=== PATIENT | male | born 1970 | race Caucasian/White ===

== ENCOUNTER → 2016-10-02 | Outpatient (CLI) | payer BC ==
[~2016-10-02] MED LIST: LEVE750T PO; OPTIRAY 320 IV PRN; PRLSR20 PO
--- NOTE | 2016-10-02 09:29 | DIAGNOSTIC IMAGING REPORT ---
CT OF THE CHEST WITH IV CONTRAST CLINICAL HISTORY: D86.9 [id number] HiijuhO62.1 Pulmonary stgegsK29.8 Abnor COMPARISON STUDY: Outside chest CT dated 04/03/2016 TECHNIQUE: Following the IV administration of 94 mL of Optiray-320, CT of the thorax was performed from the thoracic inlet to the lung bases. Images are reviewed in the axial, sagittal, and coronal planes. IV contrast was administered without complication. CT DOSE: 716.68 mGy.cm FINDINGS: Thyroid: Imaged portions of the thyroid gland are normal in appearance. Thoracic aorta: The thoracic aorta is normal in course and caliber, noting standard 3-vessel arch anatomy. No aneurysm or dissection is seen. Pulmonary vasculature: The pulmonary trunk is normal in caliber. There are no central filling defects identified to suggest pulmonary embolus. Note that this examination was not protocoled for the evaluation of pulmonary emboli. HEART: The heart is normal in size and configuration, without pericardial effusion. Lungs and pleural spaces: There are bilateral upper lobe conglomerate masses measuring 47 mm in the right and 44 mm and the left. There is a persistent area of right upper lobe atelectasis. There are innumerable bilateral pulmonary nodules. There are multiple areas of nodular wall thickening. There is a 19 mm spiculated left lower lobe pulmonary nodule unchanged in size from the preceding study. There are no significant pleural effusions. Mediastinum: There is persistent mediastinal lymphadenopathy. There is a 24 mm right para esophageal lymph node. There are enlarged pretracheal lymph nodes measuring up to 16 mm in diameter. There is a mildly enlarged subcarinal lymph node containing calcifications. Melisa: There is mild bilateral hilar adenopathy which contains areas of calcification. Axilla: Clear. Upper abdomen: There is cholelithiasis. There are enlarged retroperitoneal lymph nodes at the level of the superior mesenteric artery measuring up to 19 mm. There is a stable upper pole right renal cortical scar with a subjacent 12 mm hypodensity. Skeletal structures: There are no lytic or blastic osseous lesions. IMPRESSION: 1. Stable mediastinal, hilar, and upper abdominal lymphadenopathy 2. Stable Innumerable bilateral pulmonary nodules with stable nodular studding of the pleura. 3. Stable 19 mm spiculated left lower lobe pulmonary nodule 4. Stable conglomerate masses within the upper lobes 5. Stable right upper lobe area of atelectasis 6. While nonspecific, the above-mentioned findings are consistent with the clinical history of sarcoidosis. A coexistent neoplastic processes would be impossible to exclude Electronically signed by: Hayden Wilson M.D. 10/02/2016 9:28 AM Dictated Date/Time: 10/02/2016 9:02 AM
== END | disposition home or self-care (01) ==
LOC: C.CTS 08:30
PROVIDERS: ATTEND Physician Assistant
DX: D86.9 Sarcoidosis, unspecified (principal); J45.909 Unspecified asthma, uncomplicated; R91.1 Solitary pulmonary nodule; R91.8 Other nonspecific abnormal finding of lung field

== ENCOUNTER → 2016-10-08 | Day surgery (SDC) | payer BC ==
--- NOTE | 2016-10-05 18:46 | HISTORY & PHYSICAL EXAMINATION ---
DATE OF ADMISSION: 10/08/2016 REASON FOR HISTORY AND PHYSICAL: Bronchoscopy. REASON FOR BRONCHOSCOPY: Changing CAT scan images in a patient with sarcoidosis. HISTORY OF PRESENT ILLNESS: The patient is a 46-year-old male who we have followed in clinic for several years. The patient was diagnosed with pulmonary sarcoidosis in 2008 via biopsy. He was initially placed on prednisone. Shortly after starting prednisone he did develop some loss of vision in both eyes. At that time, he had a brain MRI that did show probable sarcoid lesions. 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 He did undergo drainage which found nocardia, however, did not clear completely so he ended up eventually having the entire abscess, which was in the right occipital lobe removed. Following this, he was treated with Bactrim for 8-9 months, but unfortunately he started to have a significant reaction, which include pancytopenia and arthralgias. He subsequently unfortunately had a generalized seizure in June 2009 and was started treatment with Keppra. Fortunately, the Keppra was helpful and he has not had any seizure activity since November 2009 when he had missed a dose of his Keppra. He had been followed by neurology in [place] and then transferred locally and was followed by neurology through [facility] at which point he was recommended to continue his current treatments with Keppra. We continued to follow the patient at the pulmonary clinic and in February I had seen the patient for a general followup at which time he was doing relatively well. His breathing had not really changed at all. Because he had not had imaging done since 2013 we did do a chest x-ray. Chest x-ray was done February 2016 and when compared to the 2013 chest x-ray did show interval increase in the prominence of the right perihilar opacity as well as increased coarse lung markings, which were noted on the 2014 x-ray. The patient then subsequently had a CAT scan of his chest at [facility] in March 2016, which showed bilateral perihilar mass-like opacity, scattered interstitial nodular opacities in a perihilar distribution, pleural nodular thickening involving both lungs also demonstrated as well as biapical pleural thickening. This was compared to chest x-rays from February 2016, December 2013, April 2012, and July 2011. There was no CAT scan for comparison. The patient was followed up in August at which time he had noticed that he had been a little more short of breath since the February visit, he had some and congestion without any significant mucus production. He was treated with Levaquin in April and in July, had not been on any prednisone due to the previous brain abscess. He states that while he was on the Levaquin his breathing improved but as soon as he finished the breathing would worsen again. He states he does get winded with exertion and he is more fatigued, but he attributed this to him stopping caffeine. He denied any fevers or chills, denied any weight changes, denied any other noticeable changes. No headache or lightheadedness. No dizziness. No vision changes. No cardiac symptoms. No chest pain, no palpitations, no chest pressure or heaviness. No GI symptoms. No nausea or vomiting, no indigestion or heartburn. His bowels have been regular. He is voiding well. No swelling in his extremities. No skin changes that he is aware of. Because of the change in CAT scan from March repeat CAT scan was done. This was done at [facility] in early September 2016 showed stable mediastinal hilar and upper abdominal lymphadenopathy, stable and innumerable bilateral pulmonary nodules, 19 mm left lower lobe pulmonary nodule with radiologist interpretation that the above-mentioned findings are consistent with clinical history of sarcoid; however coexistent neoplastic process would be impossible to exclude. We had tried to get a PET scan, unfortunately, insurance company would not approve this so we did do the CAT scan. Because of the changes in the imaging, patient is set up for bronchoscopic evaluation which will be done by Dr. Murguia. The patient's last pulmonary function testing was December 2013, which showed a forced vital capacity of 3.73 liters, which is 80% of predicted; an FEV1 of 1.84 liters, which is 48% of predicted; FEV1/FVC ratio of 49%, FEF 25-75 of 0.6 liters/sec which is 15% of predicted, residual volume of 0.87 liters which is 43% predicted, volume adjusted DLCO of 129% with an interpretation of severe obstructive lung defect with a significant response to bronchodilator. PAST MEDICAL HISTORY: Includes asthma, acute bronchitis, history of brain abscess with nocardia infection, esophageal reflux disease, generalized seizure disorder, pulmonary nodule and sarcoidosis. PAST SURGICAL HISTORY: Includes craniotomy, muscle biopsy. FAMILY HISTORY: Includes coronary artery disease. SOCIAL HISTORY: The patient is a former smoker. He smoked for about 10 years and averaged a pack a day, he quit in 1997. 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 CURRENT MEDICATIONS: Include Keppra 1000 mg 1 tablet twice daily, Combivent Respimat 1 puff every 4 hours as needed, DuoNeb via nebulizer every 4 hours as needed, Prilosec OTC 20 mg one tablet daily, levofloxacin 750 mg daily. ALLERGIES: BACTRIM/SULFA. REVIEW OF SYSTEMS: As above, otherwise unremarkable. PHYSICAL EXAMINATION: GENERAL: The patient is a 46-year-old male in no acute distress. He is alert and oriented x3. Mood is good. Affect is good. VITAL SIGNS: Temp 97.9, pulse 71, respirations 20, blood pressure is 110/68, pulse ox 95% on room air, weight is 224 pounds and has been stable dating back to May 2012. HEENT: Normocephalic, atraumatic. Pupils equal, round and reactive to light and accommodation. Extraocular movements are intact. [place] moist gingival and buccal mucosa. NECK: Supple. No mass. No adenopathy. No bruit. CHEST: Diminished but clear. No wheeze, rale or rhonchi appreciated. CARDIOVASCULAR: Regular rate and rhythm. No murmurs, gallops or rubs. ABDOMEN: Soft, nontender. No guarding, rigidity or organomegaly. Bowel sounds are present. EXTREMITIES: No erythema, no edema, no cyanosis or clubbing. NEUROLOGIC: Cranial nerves II through XII are intact. No focal deficit noted. 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 He has noticed a little bit of a change in his breathing, but it sounds more that its infectious in nature and he responded well to Levaquin; however, with the changes on imaging and some changes in his breathing, I think it would be good to get a bronchoscopic evaluation. Procedure was explained to the patient including risks, benefits and alternatives. He is agreeable to having a procedure done. He is to continue his medications as they are. He is to have appropriate blood work done. He is to contact the office if there is any question or problem. He will be followed up after the procedure. Patient reviewed and plan agreed with. ROC
[2016-10-08] VITALS (16 sets, daily range): BP systolic 106–122; BP diastolic 59–92; PULSE 62–79; TEMP 36.6–36.9; O2SAT 94–99; Ht 175.3 cm; Wt 97.6 kg
[~2016-10-08] VITALS: Ht 175.3 cm; Wt 97.6 kg
[~2016-10-08] MED LIST changes: +FENTANYL CITRATE INJ 50 MCG/1 ML 2 ML VIAL IV ONE; +IPRATROPIUM BROMIDE NEB SOLN 0.02% 2.5 ML VIAL INH ONE; +LEVALBUTEROL 1.25MG/3ML NEB INH ONE; +LIDOCAINE 4% W/AFRIN NASAL SOLN 4ML ONE; +MIDAZOLAM HCL 5 MG/ML 1 ML VIAL IV ONE; +NURSING VERBAL MED ORDER ONE; -OPTIRAY 320 IV PRN
--- NOTE | 2016-10-08 09:19 | History & Physical Bridge Note ---
H&P Re-Evaluation Bridge Note: I have examined the patient, reviewed the History & Physical and in the interval since the performance of the History & Physical I have noted the following changes of clinical significance: No changes noted
--- NOTE | 2016-10-08 09:20 | Procedure Note ---
Pre-Mod Sedation Assessment General Date of Moderate Sedation: Oct 08, 2016. Vital Signs: Vital Signs Past 12 Hours Date Time Temp Pulse Resp B/P (MAP) Pulse Ox O2 Delivery O2 Flow Rate FiO2 10/08/16 08:52 36.6 62 18 111/61 (78) 96 Room Air Pre-Sedation Airway Assessment Oral Cavity: WNL Hx of Sleep Apnea: No Smoking Status: Former Smoker Mallampati Classification: Class II ASA Classification: Class II Procedure Planning Contraindications-for Mod Sed: None Yes Notes The planned sedation has been discussed with the patient and consent obtained. I have identified the patient, determined the appropriateness of sedation and have assessed the patient immediately prior to the procedure. All medicine(s) and interventions are by my order.
--- NOTE | 2016-10-08 11:52 | OPERATIVE REPORT ---
DATE OF OPERATION: 10/08/2016 TIME: 10:30. PROCEDURE: Fiberoptic bronchoscopy with and without transbronchial biopsy. INDICATIONS: History of pulmonary tuberculosis with worsening respiratory status. ANESTHESIA PREOPERATIVELY: None. ANESTHESIA DURING PROCEDURE: 5 mg IV Versed, 50 mcg IV fentanyl, 20 mL 2% Xylocaine spray above and below the cords, 4% viscous Xylocaine intranasally. PROCEDURE: Fiberoptic bronchoscope was inserted into the right naris with minimal difficulty and passed to the level of the true vocal cords. The cords appeared to approximate normally with phonation without evidence of lesions or paralysis. The scope was then introduced in the trachea and right and left tracheobronchial tree. The lee was sharp. The left main stem bronchus was explored initially and no endobronchial lesion was seen. The left upper lobe, the apical-posterior and anterior segments, lingual subdivision of left lower lobe were freed of endobronchial lesions down to subsegmental bronchi. A mild to moderate degree of global inflammatory mucosal change was seen with mucous pitting visible throughout the left tracheobronchial tree. The right main stem bronchus was explored and no endobronchial lesion was seen. The right upper lobe with the apical-posterior and anterior segments were identified with volume loss and fish -mouthing involving both the apical and posterior segments. These areas were copiously lavaged with normal saline. Small mucus plugs with purulent material was obtained and sent for appropriate analysis. Cytologic preparation x3 were obtained of those 2 segments, however; the most abnormal were posterior and apical segments and a moderate amount of bleeding was encountered which abated spontaneously. The bronchus intermedius, right middle lobe and the medial and lateral segments and all basilar segments of the right lower lobe were free of endobronchial lesions. No transbronchial biopsies were attempted. The procedure was terminated. The patient was given a nebulizer treatment with Xopenex 1.25 mg and transferred to the medical treatment unit, hemodynamically stable with no signs of respiratory compromise. We will await microbiological and cytologic examination of the bronchial washings and brushings. I attest to the content of the Intraoperative Record and any orders documented therein. Any exceptions are noted below. [facility]
--- NOTE | 2016-10-08 12:22 | Discharge Instructions ---
Discharge Instructions Date of Service Oct 08, 2016. Admission Reason for Admission: Asthma, Pulmonary Nodule Discharge Discharge Diagnosis / Problem: Pulmonary Nodule Discharge Goals Goal(s): Diagnostic testing Activity Recommendations Activity Limitations: resume your previous activity ACTIVITY RECOMMENDATIONS: * Rest today, resume normal activity tomorrow. * Do not drive today. SPECIAL CARE INSTRUCTIONS: * Call your physician if you experience any chest or shoulder pain, fever, coughing, spitting up blood (more than 2 teaspoons) or excessive shortness of breath. * Remove dressing from IV site (where needle was placed into the vein) after 2 hours. Apply a warm, moist compress to site if irritation occurs. Call physician if site becomes red or painful to touch. * You may eat 4 hours after the completion of your procedure * Resume all usual medications as previously directed FOLLOW UP VISIT: * Keep any scheduled doctor appointments. . Instructions / Follow-Up Instructions / Follow-Up ACTIVITY RECOMMENDATIONS: * Rest today, resume normal activity tomorrow. * Do not drive today. SPECIAL CARE INSTRUCTIONS: * Call your physician if you experience any chest or shoulder pain, fever, coughing, spitting up blood (more than 2 teaspoons) or excessive shortness of breath. * Remove dressing from IV site (where needle was placed into the vein) after 2 hours. Apply a warm, moist compress to site if irritation occurs. Call physician if site becomes red or painful to touch. * You may eat 4 hours after the completion of your procedure * Resume all usual medications as previously directed FOLLOW UP VISIT: * Keep any scheduled doctor appointments. Current Hospital Diet Patient's current hospital diet: Discharge Diet Recommended Diet: Regular Diet Procedures Procedures Performed: Bronchoscopy Pending Studies Studies pending at discharge: yes List of pending studies: Cultures. Medical Emergencies . Who to Call and When: Medical Emergencies: If at any time you feel your situation is an emergency, please call 911 immediately. . Non-Emergent Contact Non-Emergency issues call your: Primary Care Provider . . "Provider Documentation" section prepared by Anibal Balderrama PA-C. . VTE Core Measure Inpt VTE Proph given/why not?: Treatment not indicated (Same day procedure. )
--- NOTE | 2016-10-08 14:26 | OPERATIVE REPORT ---
DATE OF OPERATION: 10/08/2016 ADDENDUM The medication during the procedure instead of 50 mcg of IV fentanyl, it was 100 mcg of IV fentanyl. I attest to the content of the Intraoperative Record and any orders documented therein. Any exception s are noted below.
[2016-10-10 14:17] LABS: HERPES SIMPLEX CULT SOURCE OTHER-RUL WASH; HERPES SIMPLEX VIRUS CULT NOT ISOLATED (NOT ISOLATED)
== END | disposition home or self-care (01) ==
LOC: C.ACU 08:34
PROVIDERS: ATTEND Internal Medicine Pulmonary Disease
DX: D86.0 Sarcoidosis of lung (principal); Z86.11 Personal history of tuberculosis; J20.9 Acute bronchitis, unspecified; K21.9 Gastro-esophageal reflux disease without esophagitis; G40.409 Other generalized epilepsy and epileptic syndromes, not intractable, without status epilepticus; Z79.899 Other long term (current) drug therapy; B37.1 Pulmonary candidiasis; R91.8 Other nonspecific abnormal finding of lung field

== ENCOUNTER 2017-06-14 12:14 | Inpatient (IN) | payer BC, OTHER ==
[2017-06-07 08:20] VITALS: Ht 175.3 cm; Wt 100.0 kg
[~2017-06-14] VITALS: Ht 175.3 cm; Wt 100.0 kg
[2017-06-14] VITALS (10 sets, daily range): BP systolic 100–122; BP diastolic 63–83; PULSE 61–83; TEMP 36.6–37.2; O2SAT 94–98
[~2017-06-14 12:14] MED LIST changes: +DEXAMETHASONE SOD INJ 4 MG/ML VIAL ONE; -FENTANYL CITRATE INJ 50 MCG/1 ML 2 ML VIAL IV ONE; +FENTANYL CITRATE INJ 50 MCG/1 ML 2 ML VIAL ONE; +IPRA1AER2 INH; +IPRASOL4 INH; -IPRATROPIUM BROMIDE NEB SOLN 0.02% 2.5 ML VIAL INH ONE; +KEPPRA PO; +LACTATED RINGER'S 1000ML 1,000 ML IV SCH; -LEVALBUTEROL 1.25MG/3ML NEB INH ONE; -LEVE750T PO; -LIDOCAINE 4% W/AFRIN NASAL SOLN 4ML ONE; +LIDOCAINE HCL 2% 2 ML VIAL (20MG/ML) ONE; +MIDAZOLAM HCL 1 MG/ML 2ML VIAL ONE; -MIDAZOLAM HCL 5 MG/ML 1 ML VIAL IV ONE; -NURSING VERBAL MED ORDER ONE; +ONDANSETRON INJ 2 MG/ML 2 ML VIAL ONE; +PROPOFOL IV EMULSION 10 MG/ML 20 ML VIAL IV ONE; +QVRINH80 INH; +ROCURONIUM BROMIDE 10 MG/ML 5 ML VIAL IV ONE
[2017-06-14] MEDS ORDERED: BUPIVACAINE LIPOSOME 1/3% 266 MG/20 ML VIAL INFIL ONE (12:32)
[2017-06-14] MEDS ORDERED: SODIUM CHLORIDE 0.9% PF 50 ML VIAL ONE ×2 (12:32→12:33)
[2017-06-14] MEDS ORDERED: BUPIVACAINE 0.5 % 5 MG/1 ML MPF 30ML VIAL ONE (12:32)
[2017-06-14] MEDS ORDERED: ONDANSETRON INJ 2 MG/ML 2 ML VIAL IV PRN ×2 (13:00→14:00)
[2017-06-14] MEDS ORDERED: FENTANYL CITRATE INJ 50 MCG/1 ML 2 ML VIAL IV PRN (13:00)
[2017-06-14] MEDS ORDERED: ATROPINE SULFATE 0.1 MG/ML 5ML SYR IV PRN (13:00)
[2017-06-14] MEDS ORDERED: KETOROLAC TROMETHAMINE 30 MG/ML VIAL IV. PRN (13:00)
[2017-06-14] MEDS ORDERED: CEFAZOLIN SOD 1 GM VIAL ONE (13:17)
[2017-06-14] MEDS ORDERED: EpHEDrine SULFATE INJ 50 MG/ML AMP ONE (13:36)
[2017-06-14] MEDS ORDERED: GLYCOPYRROLATE INJ 0.2 MG/ML VIAL ONE (13:45)
[2017-06-14] MEDS ORDERED: NEOSTIGMINE METHYLSULFATE 5 MG/5 ML SYR ONE (13:45)
--- NOTE | 2017-06-14 13:58 | [facility] Post Operative Brief Note ---
Immediate Operative Summary Operative Date Jun 14, 2017. Pre-Operative Diagnosis Probable sarcoidosis Post-Operative Diagnosis Same Procedure(s) Performed Left Video Assisted Thoracoscopy with Lung Biopsy Surgeon Dr Valdovinos Wood Type Finisher Surgeon(s) Perfecto Reeves PA-C Estimated Blood Loss 5ML Findings Consistent with Post-Op Diagnosis Specimens Culture #1 left upper lobe for gram stain, aerobic, anaerobic, fungal, AFB sent out at 1334 Frozen section #1 left upper lobe sent out at 1334 A. Left lower lobe Anesthesia Type General
[2017-06-14] MEDS ORDERED: OXYCODONE HCL IR 5 MG TAB (IMMEDIATE RELEASE) PO PRN (14:00)
[2017-06-14] MEDS ORDERED: IPRATROPIUM BROMIDE/ALBUTEROL respimat INH INH PRN (14:00)
[2017-06-14] MEDS ORDERED: MoRPHine SULFATE 2 MG/ML CARP IV PRN (14:00)
[2017-06-14] MEDS ORDERED: ALBUT/IPRATROP 3MG/0.5MG NEB 3 ML VIAL INH PRN (14:00)
--- NOTE | 2017-06-14 14:37 | DIAGNOSTIC IMAGING REPORT ---
CHEST ONE VIEW PORTABLE CLINICAL HISTORY: left wedge resection COMPARISON STUDY: CT chest 10/02/2016 FINDINGS: Right hilar masslike process unchanged in the prior study. Potential left perihilar nodule somewhat increased in the prior exam. Operative changes consistent with a left-sided chest tube placement. Somewhat miliary parenchymal band throughout both hemithoraces considered chronic. No significant postprocedural pneumothorax. IMPRESSION: Post operative changes left hemithorax with no significant postprocedural pneumothorax. The above report was generated using voice recognition software. It may contain grammatical, syntax or spelling errors. Electronically signed by: Riley Young M.D. 06/14/2017 2:36 PM Dictated Date/Time: 06/14/2017 2:34 PM
--- NOTE | 2017-06-14 16:19 | Anesthesiology Progress Note ---
Anesthesia Post Op Note Date & Time Jun 14, 2017 at 16:19 Vital Signs Pain Intensity: 2 Vital Signs Past 12 Hours Date Time Temp Pulse Resp B/P (MAP) Pulse Ox O2 Delivery O2 Flow Rate FiO2 06/14/17 16:00 36.6 61 17 121/80 (94) 96 Nasal Cannula 2.0 06/14/17 15:33 98 Nasal Cannula 2.0 18 15:30 98 Nasal Cannula 2.0 06/14/17 15:28 36.6 61 15 108/69 (82) 98 Nasal Cannula 2.0 06/14/17 15:16 110/73 06/14/17 15:13 54 16 06/14/17 15:13 54 16 95 06/14/17 15:11 108/70 06/14/17 15:08 57 13 06/14/17 15:08 57 13 96 18 15:06 113/75 06/14/17 15:03 62 15 95 18 15:03 61 15 06/14/17 15:00 112/75 06/14/17 14:58 62 17 96 18 14:58 61 17 18 14:56 113/75 06/14/17 14:53 60 16 06/14/17 14:53 60 16 96 18 14:51 113/79 06/14/17 14:48 64 15 18 14:48 63 15 96 18 14:47 61 14 97 18 14:47 61 14 06/14/17 14:45 111/77 06/14/17 14:42 69 17 97 18 14:42 68 17 1618 14:41 115/76 18 14:37 69 14 97 16/18 14:37 69 14 18 14:36 36.4 65 12 111/78 (95) 97 Nasal Cannula 2 06/14/17 14:35 111/78 18 14:32 64 17 16/18 14:32 65 17 98 1618 14:30 108/81 18 14:27 72 13 99 18 14:27 73 13 1618 14:26 113/79 2/16/18 14:22 71 11 06/14/17 14:22 72 11 99 06/14/17 14:21 69 12 06/14/17 14:21 69 12 98 06/14/17 14:20 117/80 06/14/17 14:19 69 15 06/14/17 14:19 68 15 99 06/14/17 14:16 105/76 06/14/17 14:14 73 13 99 06/14/17 14:14 74 13 06/14/17 14:11 120/80 06/14/17 14:09 83 13 06/14/17 14:09 36.6 83 18 133/87 (91) 98 Oxymask 10 06/14/17 14:09 83 13 133/87 98 06/14/17 12:44 36.9 83 18 122/83 95 Room Air Notes Mental Status: alert / awake / arousable, participated in evaluation Pt Amnestic to Procedure: Yes Nausea / Vomiting: adequately controlled Pain: adequately controlled Airway Patency, RR, SpO2: stable & adequate BP & HR: stable & adequate Hydration State: stable & adequate Anesthetic Complications: no major complications apparent
[2017-06-14] MEDS: ACETAMINOPHEN IV 1,000 MG in EMPTY BAG 0 ML IV SCH ×2 (17:16→23:28)
[2017-06-14] MEDS: D5W AND 1/2NSS 1,000 ML IV SCH (17:16)
[2017-06-14] MEDS: METOCLOPRAMIDE HCL INJ 5 MG/ML 2 ML VIAL IV. SCH (17:17)
[2017-06-14] MEDS: KETOROLAC TROMETHAMINE 15 MG/ML VIAL IV. SCH (17:18)
--- NOTE | 2017-06-14 18:43 | OPERATIVE REPORT ---
DATE OF OPERATION: 06/14/2017 PREOPERATIVE DIAGNOSES: 1. History of sarcoidosis. 2. Pulmonary nodules and pleural abnormalities. PROCEDURE: Left thoracoscopy with lung biopsy. SURGEON: Dr. Stephens. PLODDING MACHINE OPERATOR: Davis Reeves. (Mr. Reeves was present for the entire case and helped manage the camera and closed the skin incision at the conclusion of the case.) ANESTHESIA: General anesthesia endotracheal intubation with a single lumen tube. SPECIFICS OF PROCEDURE: Remy Ireland is a 47-year-old who was diagnosed about 9 years ago with sarcoidosis; however, he had a problem with steroids and developed a nocardia brain abscess. There has been a reluctance to use this corticosteroids since that recurred. He now has worsening symptoms and was seen by a quality control chemist at [facility] and it was felt that a tissue diagnosis would be helpful. I got him set up and had a long discussion with the patient and his . I brought him in for a lung biopsy today. On 06/14/2017, the patient underwent an uncomplicated thoracoscopic biopsy and I removed a segment from the upper lobe and the lower lobe. He tolerated well the Exparel block. Frozen section on one of the segments came back as being consistent with sarcoidosis. We did send off cultures. DESCRIPTION OF PROCEDURE: The patient brought into the operating room and laid in supine position. General anesthesia was induced and endotracheal intubation was performed with a single lumen tube. The patient was turned in right lateral decubitus position, left chest prepped and draped in usual sterile fashion. Two 5 mm ports and a 12 mm port were placed with a 5 mm port below the tip of the scapula at the posterior and another one at about the fourth interspace anterior to the latissimus dorsi. A 12 mm scope about the eighth interspace anteriorly. There were a few adhesions which were taken down with a hook cautery. His lung was markedly abnormal. I removed a segment of the upper lobe with an Endo-JANEL stapler and then removed another portion of the lower lobe with the Endo-JANEL stapler. These were both grossly abnormal. The frozen section showed this to be granulomatous disease. We did send off for cultures. We had no bleeding or air leak from either one of these areas. His lung was grossly abnormal and there were implants. I used 266 mg of Exparel mixed with 150 mL of normal saline, 30 mL of 0.5% bupivacaine. We injected this from the 2nd to the 12th rib and then in the incisions also. A 24-[place] chest tube was placed in the anterior inferior incision and directed towards the apex. It was held in place with heavy silk suture. The 4-0 Monocryl was used in running subcuticular fashion to approximate the wound edges. He tolerated it very well. I attest to the content of the Intraoperative Record and any orders documented therein. Any exception s are noted below.
[2017-06-14] MEDS: BECLOMETHASONE DIP HFA 80 MCG 8.7G INH INH SCH (21:39)
[2017-06-14] MEDS: LEVETIRACETAM 500 MG TAB PO SCH (21:40)
[2017-06-14] MEDS: DOCUSATE SODIUM 100 MG CAP PO SCH (21:40)
[2017-06-15] MEDS: METOCLOPRAMIDE HCL INJ 5 MG/ML 2 ML VIAL IV. SCH ×2 (00:04→07:28)
[2017-06-15] MEDS: KETOROLAC TROMETHAMINE 15 MG/ML VIAL IV. SCH ×2 (00:04→07:28)
[2017-06-15] MEDS: D5W AND 1/2NSS 1,000 ML IV SCH ×2 (00:05→11:45)
[2017-06-15 03:33] VITALS: BP 95/55; PULSE 62; TEMP 37; O2SAT 96
[2017-06-15] MEDS: ACETAMINOPHEN IV 1,000 MG in EMPTY BAG 0 ML IV SCH (05:46)
[2017-06-15 07:04] VITALS: BP 100/64; PULSE 59; TEMP 36.6; O2SAT 95
--- NOTE | 2017-06-15 07:40 | DIAGNOSTIC IMAGING REPORT ---
CHEST ONE VIEW PORTABLE HISTORY: left wedge resection COMPARISON: Chest 06/14/2017. FINDINGS: There are low lung volumes with diffuse interstitial thickening, unchanged. Left chest tube terminates in the left lung apex, unchanged. Suspect a tiny left apical pneumothorax. Left upper lobe suture material is again noted. No pleural effusions. The heart is stable in size. Right perihilar masslike opacity persists. Improved aeration within the left suprahilar nodular density. IMPRESSION: Redemonstration of the postoperative changes within the left hemithorax. Left-sided chest tube is unchanged in position. There appears to be a tiny left apical pneumothorax. Right perihilar masslike density persists. Electronically signed by: Tang Lamar M.D. 06/15/2017 7:38 AM Dictated Date/Time: 06/15/2017 7:37 AM
[2017-06-15] MEDS: DOCUSATE SODIUM 100 MG CAP PO SCH (08:34)
[2017-06-15] MEDS: LEVETIRACETAM 500 MG TAB PO SCH (08:34)
[2017-06-15] MEDS: BECLOMETHASONE DIP HFA 80 MCG 8.7G INH INH SCH (08:34)
[2017-06-15] MEDS ORDERED: ENOXAPARIN 40 MG/0.4 ML SYR SQ SCH (09:00)
[2017-06-15] MEDS ORDERED: PANTOprazole SOD 40 MG TAB PO SCH (09:00)
--- NOTE | 2017-06-15 10:37 | Discharge Instructions ---
Discharge Instructions Date of Service Jun 15, 2017. Admission Reason for Admission: Sarcoidosis, Pulmonary Nodule Discharge Discharge Diagnosis / Problem: same Discharge Goals Goal(s): Decrease discomfort Activity Recommendations Activity Limitations: as noted below Lifting Limitations: gradually increase as tolerated Exercise/Sports Limitations: gradually increase as tolerated May Resume Sexual Activity: when tolerated Shower/Bathe: may shower/bathe in 3 days Driving or Machine Use: resume 3 days after discharge . Instructions / Follow-Up Instructions / Follow-Up I will see you in the office next week with a chest xray. Current Hospital Diet Patient's current hospital diet: Regular Diet Discharge Diet Recommended Diet: Regular Diet Procedures Procedures Performed: Left Video Assisted Thoracoscopy with Lung Biopsy Pending Studies Studies pending at discharge: yes List of pending studies: Final pathology and cultures of lung tissue. Medical Emergencies . Who to Call and When: Medical Emergencies: If at any time you feel your situation is an emergency, please call 911 immediately. . Non-Emergent Contact Non-Emergency issues call your: Primary Care Provider Call Non-Emergent contact if: temperature is above 101, wound has increased drainage, wound has increased redness, wound has increased pain Call the hospial at [phone] if you run into any problems and page Dr Stephens . "Provider Documentation" section prepared by aKsh Stephens. . VTE Core Measure Inpt VTE Proph given/why not?: Enoxaparin (Lovenox)SQ, SCD's
--- NOTE | 2017-06-15 10:45 | DIAGNOSTIC IMAGING REPORT ---
CHEST ONE VIEW PORTABLE HISTORY: s/p chest tube removal COMPARISON: Chest 06/15/2017. FINDINGS: The left-sided chest tube is been removed. Suspect a tiny left apical pneumothorax remaining. This is not significantly change. This measures a maximal pleural gap of 4 mm. The heart is stable in size. Right perihilar masslike opacity persists. Diffuse interstitial thickening. Small left perihilar nodular density is again noted. IMPRESSION: Status post removal of the left-sided chest tube. Tiny left pneumothorax persists. Parenchymal changes as described above are again noted. Electronically signed by: Tang Lamar M.D. 06/15/2017 10:44 AM Dictated Date/Time: 06/15/2017 10:42 AM
[2017-06-15 11:11] VITALS: BP 100/64; PULSE 59; TEMP 36.6; O2SAT 95
--- NOTE | 2017-06-15 12:08 | DISCHARGE SUMMARY ---
DISCHARGE DIAGNOSIS: Pulmonary sarcoidosis. HOSPITAL COURSE: This is a 47-year-old male who was diagnosed with sarcoidosis about 9 years ago and is followed by a sarcoidosis specialist at [facility]. We do not have tissue confirmation and he has been treated with multiple agents. Dr. Orlin Murguia asked I would evaluate him and I did and the patient and his were quite eager to have tissue confirmation for the followup with the blanket winder helper at [facility]. On 06/14/2017, the patient underwent an uncomplicated left thoracoscopy with wedge resection of the left upper lobe and left lower lobe. I was impressed with how grossly abnormal his lungs were. There were parietal pleural, visceral pleural and parenchymal implants. Frozen section of this showed granulomas. We did send this off for cultures including AFB and fungal as well as atypical. Final pathology is still pending. The patient did very well with surgery. I used Exparel for an intercostal and regional block and he had no pain essentially. The patient was ambulating in the hallway. He was on room air. I removed his chest tube. All sites were clean and his x-ray looked quite good. We discharged him on postop day #1 and will see him back in the office next week and give him a final pathology report and check an x-ray.
== END 2017-06-15 13:20 | disposition home or self-care (01) | DRG 165 ==
LOC: C.ACU 12:14 → C.MSN 14:04 → ENRESERV 14:51
PROVIDERS: ADMIT Surgery; ATTEND Surgery
PROC: 0BBJ4ZX Excision of Left Lower Lung Lobe, Percutaneous Endoscopic Approach, Diagnostic (ICD-10-PCS; principal; 2017-06-14 13:45)
PROC: 0BBG4ZZ Excision of Left Upper Lung Lobe, Percutaneous Endoscopic Approach (ICD-10-PCS; principal; 2017-06-14 13:45)
DX: D86.0 Sarcoidosis of lung (principal); Z79.899 Other long term (current) drug therapy; Z87.891 Personal history of nicotine dependence; Z88.2 Allergy status to sulfonamides

== ENCOUNTER → 2017-06-24 | Outpatient (CLI) | payer BC, OTHER ==
[~2017-06-24] MED LIST changes: -DEXAMETHASONE SOD INJ 4 MG/ML VIAL ONE; -FENTANYL CITRATE INJ 50 MCG/1 ML 2 ML VIAL ONE; -LACTATED RINGER'S 1000ML 1,000 ML IV SCH; -LIDOCAINE HCL 2% 2 ML VIAL (20MG/ML) ONE; -MIDAZOLAM HCL 1 MG/ML 2ML VIAL ONE; -ONDANSETRON INJ 2 MG/ML 2 ML VIAL ONE; -PROPOFOL IV EMULSION 10 MG/ML 20 ML VIAL IV ONE; -ROCURONIUM BROMIDE 10 MG/ML 5 ML VIAL IV ONE
--- NOTE | 2017-06-24 12:32 | DIAGNOSTIC IMAGING REPORT ---
CHEST 2 VIEWS ROUTINE CLINICAL HISTORY: Pulmonary nodule. COMPARISON STUDY: Chest CT October 02, 2016 and chest radiograph June 15, 2017. FINDINGS: The left pneumothorax seen of June 15, 2017 has resolved. Diffuse reticulonodular interstitial thickening is unchanged. Right perihilar mass-like opacity is unchanged. There is no evidence for pulmonary edema. Cardiomediastinal silhouette is stable. IMPRESSION: 1. Resolution of the left pneumothorax since previous exam. 2. Otherwise, unchanged appearance of the chest with findings suggestive of a granulomatous process such as sarcoidosis. Electronically signed by: Rocky Lopez M.D. 06/24/2017 12:31 PM Dictated Date/Time: 06/24/2017 12:28 PM
== END | disposition home or self-care (01) ==
LOC: C.RAD1850 12:00
PROVIDERS: ATTEND Surgery
DX: R91.1 Solitary pulmonary nodule (principal); R91.8 Other nonspecific abnormal finding of lung field

== ENCOUNTER → 2017-08-08 | Outpatient (CLI) | payer BC | END | disposition home or self-care (01) | LOC: C.PATH 08:56 | PROVIDERS: ATTEND Nurse Practitioner Family | DX: R59.0 Localized enlarged lymph nodes (principal) ==